=== PATIENT | male | born 1990 | race Caucasian/White ===

== ENCOUNTER 2016-06-21 13:16 | Emergency (ER) | payer OTHER ==
[~2016-06-21] VITALS: Ht 170.2 cm; Wt 55.3 kg
[2016-06-21 16:08] VITALS: BP 120/64
== END 2016-06-21 16:08 | disposition home or self-care (01) ==
LOC: ED 13:16
DX: R59.0 Localized enlarged lymph nodes (principal)
CPT/HCPCS: 87491; 87591